=== PATIENT | male | born 1980 | race Caucasian/White ===

== ENCOUNTER 2019-04-22 12:56 | Emergency (ER) | payer MEDICAID ==
[~2019-04-22] VITALS: Ht 177.8 cm; Wt 131.5 kg
[2019-04-22 13:04] VITALS: Ht 177.8 cm; Wt 131.5 kg
[2019-04-22 14:04] LABS: CALCIUM 9.2 mg/dL (8.5-10.1); CARBON DIOXIDE 29.3 mmol/L (21-32); CHLORIDE SERUM 107 mmol/L (98-107); GFR1 > 60 mL/min; GLUCOSE SERUM 129 mg/dL (74-106); POTASSIUM SERUM 3.9 mmol/L (3.5-5.1); SODIUM SERUM 144 mmol/L (136-145)
[2019-04-22 14:08] LABS: ALBUMIN 3.9 g/dL (3.4-5.0); ALKALINE PHOSPHATASE 94 U/L (46-116); ALT/SGPT 26 U/L (16-63); AST/SGOT 33 U/L (15-37); BASOPHIL % 0.9 % (0-2); BILIRUBIN TOTAL 0.8 mg/dL (0.20-1.00); PLATELET COUNT 260 x10^3mcL (130-400); RED CELL DISTRIBUTION WIDTH 13.7 % (11.5-14.5)
[2019-04-22 14:38] LABS: FREE T4 1.1 ng/dL (0.76-1.46); FREE THYROXINE INDEX 2.6 ug/dL (1.4-4.5); T4(THYROXINE) 7.3 ug/dL (4.7-13.3)
[2019-04-22 14:43] LABS: T3 TOTAL 1.16 ng/mL
[2019-04-22 15:33] VITALS: BP 136/83
== END 2019-04-22 15:33 | disposition home or self-care (01) ==
LOC: ED 12:56
PROVIDERS: Emergency Medicine
DX: R07.89 Other chest pain (principal); F41.9 Anxiety disorder, unspecified; F17.210 Nicotine dependence, cigarettes, uncomplicated; R20.2 Paresthesia of skin; R11.0 Nausea; R00.2 Palpitations; R06.02 Shortness of breath
CPT/HCPCS: 36415; 84439; 99406; Q0092